=== PATIENT | female | born 1950 | race Caucasian/White ===

== ENCOUNTER 2024-12-02 10:15 | Outpatient (CLI) | payer MEDICARE ==
[2024-12-02 13:28] LABS: #Basophils 0.05 10x3/uL (0.0-0.2); #Eosinophils 0.07 10x3/uL (0.0-0.7); #Monocytes 0.67 10x3/uL (0.11-0.59); #Neutrophils 3.10 10x3/uL (1.40-6.50); %Basophils 0.8 % (0.0-1.0); %Eosinophils 1.2 % (0.0-10.0); %Lymphocytes 34.5 % (21.0-51.0); %Monocytes 11.3 % (0.0-10.0); %Neutrophils 52.0 % (42.0-75.0); Hematocrit 43.7 % (36.0-47.0); Hemoglobin 14.7 g/dL (12.0-16.0); Mean Corpuscular Hemoglobin 31.3 pg (27.0-31.0); Mean Corpuscular Volume 93.0 fL (78.0-98.0); Platelet Count 240 10x3/uL (130-400); Red Blood Cell (RBC) Count 4.70 mill/uL (4.20-5.40); White Blood Cell (WBC) Count 5.95 10x3/uL (4.8-10.8)
[2024-12-02 13:45] LABS: Anion Gap 15 mmol/L (10-20); BUN (Urea Nitrogen) 15 mg/dL (9.8-20.1); Calc. Creatinine Clearance 0 mL/min (70-130); Calcium 9.3 mg/dL (7.8-10.44); Carbon Dioxide 24 mmol/L (23-31); Chloride 104 mmol/L (98-107); Glucose 80 mg/dL (83-110); INR-International Normal Ratio 1.1; Potassium 4.1 mmol/L (3.5-5.1); Prothrombin Time 14.1 sec (12.0-14.7); Sodium 139 mmol/L (136-145)
[2024-12-02 15:11] LABS: Bacteria/HPF None Seen HPF (None Seen); Glucose, Urine (Dipstick) Normal (Negative); Leukocyte Negative Leu/uL (Negative); Protein, Urine (Dipstick) Negative (Neg-Trace); RBC/HPF 0-3 HPF (0-3); Specific Gravity, Urine 1.012 (1.002-1.036); WBC/HPF 0-3 HPF (0-3)
== END 2024-12-02 10:16 | disposition home or self-care (01) ==
LOC: LABBT 10:15 → MERGE 14:01
PROVIDERS: ATTEND Orthopaedic Surgery
DX: Z01.818 Encounter for other preprocedural examination (principal); M17.11 Unilateral primary osteoarthritis, right knee
CPT/HCPCS: 71046; 80048; 81001; 85025; 85610; 87081; 93005; 93010

== ENCOUNTER 2024-12-09 05:33 | Inpatient (IN) | payer MEDICARE ==
[2024-12-02 10:23] VITALS: BMI 29.2
[2024-12-09] MEDS ORDERED: Tranexamic Acid 1,000 MG/10 ML VIAL ONE ×2 (06:24→08:55)
[2024-12-09] MEDS ORDERED: Vancomycin 1 GM/200 ML (PREMIX FOIL) BAG ONE (06:25)
[2024-12-09] MEDS ORDERED: Ropivacaine 0.5% HCl/PF (150 MG/30 ML VIAL) ONE (06:34)
[2024-12-09] MEDS ORDERED: PROPOFOL 20 ML ONE (07:05)
[2024-12-09] MEDS ORDERED: Ondansetron PF 4 MG/2 ML Vial ONE ×2 (07:07→10:05)
[2024-12-09] MEDS ORDERED: Lidocaine 1% PF 5 ML VIAL ONE (07:07)
[2024-12-09] MEDS ORDERED: CEFAZOLIN 2 GM VIAL ONE (07:09)
[2024-12-09] MEDS ORDERED: MINERAL OIL/WHITE PETROLATUM 3.5 GM TUBE ONE (07:22)
[2024-12-09] MEDS ORDERED: Ropivacaine 0.2% 550 ML 550 ML NERVE BLCK SCH (07:30)
[2024-12-09] MEDS ORDERED: Ondansetron PF 4 MG/2 ML Vial IVP PRN (07:30)
[2024-12-09] MEDS ORDERED: PHENYLEPHRINE-NS 100 MCG/ML 10 ML SYRINGE ONE (08:27)
[2024-12-09] MEDS ORDERED: Acetaminophen 325 MG TAB PO PRN (08:41)
[2024-12-09] MEDS ORDERED: HYDROmorphone 0.5 MG/0.5 ML SYRINGE ONE ×3 (08:55→10:04)
[2024-12-09] MEDS ORDERED: Ketorolac Tromethamine 30 MG (1 mL) VIAL ONE (08:55)
[2024-12-09] MEDS ORDERED: fentaNYL PF 100 MCG/2 ML SYRINGE ONE ×2 (09:22→10:03)
[2024-12-09] MEDS: Ketorolac Tromethamine 30 MG (1 mL) VIAL IVP SCH (10:07)
[2024-12-09] MEDS: Aspirin 81 mg Enteric Coated Tablet PO SCH (14:14)
[2024-12-09] MEDS: Pantoprazole 40 MG DR.TAB PO SCH (14:15)
[2024-12-09] MEDS: HYDROcodone/Acetaminophen 10/325 mg Tablet PO PRN (15:54)
[2024-12-09 16:34] VITALS: BMI 29.2
[2024-12-09] MEDS: Rosuvastatin 5 MG TAB PO SCH (20:30)
[2024-12-09] MEDS: Vancomycin 1 GM in Premix 1 BAG IVPB SCH (20:30)
[2024-12-10 05:27] LABS: Hematocrit 36.1 % (36.0-47.0); Hemoglobin 11.9 g/dL (12.0-16.0); Mean Corpuscular Hemoglobin 31.2 pg (27.0-31.0); Mean Corpuscular Volume 94.5 fL (78.0-98.0); Platelet Count 182 10x3/uL (130-400); Red Blood Cell (RBC) Count 3.82 mill/uL (4.20-5.40); White Blood Cell (WBC) Count 8.16 10x3/uL (4.8-10.8)
[2024-12-10] MEDS: HYDROcodone/Acetaminophen 10/325 mg Tablet PO PRN (08:56)
[2024-12-10] MEDS: Senokot S 8.6-50 MG TAB PO SCH (09:00)
[2024-12-10] MEDS: Ferrous Gluconate 324 MG TAB PO SCH (09:00)
[2024-12-10] MEDS: Multivitamin W/ Minerals 1 TAB PO SCH (09:00)
[2024-12-10] MEDS: Ondansetron PF 4 MG/2 ML Vial IVP PRN (09:01)
[2024-12-10] MEDS ORDERED: Artificial Tear Ophth Sol 15 ML BOT EA EYE PRN (12:58)
[2024-12-11 05:30] LABS: Hematocrit 35.1 % (36.0-47.0); Hemoglobin 11.5 g/dL (12.0-16.0); Mean Corpuscular Hemoglobin 31.7 pg (27.0-31.0); Mean Corpuscular Volume 96.7 fL (78.0-98.0); Platelet Count 180 10x3/uL (130-400); Red Blood Cell (RBC) Count 3.63 mill/uL (4.20-5.40); White Blood Cell (WBC) Count 7.92 10x3/uL (4.8-10.8)
[2024-12-12 05:20] LABS: Hematocrit 32.9 % (36.0-47.0); Hemoglobin 11.0 g/dL (12.0-16.0); Mean Corpuscular Hemoglobin 31.3 pg (27.0-31.0); Mean Corpuscular Volume 93.7 fL (78.0-98.0); Platelet Count 170 10x3/uL (130-400); Red Blood Cell (RBC) Count 3.51 mill/uL (4.20-5.40); White Blood Cell (WBC) Count 7.67 10x3/uL (4.8-10.8)
[2024-12-13 05:08] LABS: Hematocrit 33.6 % (36.0-47.0); Hemoglobin 11.0 g/dL (12.0-16.0); Mean Corpuscular Hemoglobin 30.6 pg (27.0-31.0); Mean Corpuscular Volume 93.3 fL (78.0-98.0); Platelet Count 203 10x3/uL (130-400); Red Blood Cell (RBC) Count 3.60 mill/uL (4.20-5.40); White Blood Cell (WBC) Count 6.28 10x3/uL (4.8-10.8)
[2024-12-13] MEDS: diphenhydrAMINE 25 MG CAP PO PRN (21:10)
[2024-12-14 06:17] LABS: Hematocrit 34.2 % (36.0-47.0); Hemoglobin 11.2 g/dL (12.0-16.0); Mean Corpuscular Hemoglobin 31.0 pg (27.0-31.0); Mean Corpuscular Volume 94.7 fL (78.0-98.0); Platelet Count 234 10x3/uL (130-400); Red Blood Cell (RBC) Count 3.61 mill/uL (4.20-5.40); White Blood Cell (WBC) Count 5.69 10x3/uL (4.8-10.8)
[2024-12-14] MEDS: Milk Of Magnesia 30 ML UDCUP PO SCH (10:15)
[2024-12-15 04:50] LABS: Hematocrit 34.5 % (36.0-47.0); Hemoglobin 11.4 g/dL (12.0-16.0); Mean Corpuscular Hemoglobin 30.8 pg (27.0-31.0); Mean Corpuscular Volume 93.2 fL (78.0-98.0); Platelet Count 250 10x3/uL (130-400); Red Blood Cell (RBC) Count 3.70 mill/uL (4.20-5.40); White Blood Cell (WBC) Count 5.30 10x3/uL (4.8-10.8)
[2024-12-17 04:31] VITALS: TEMP 97.8
[2024-12-17 08:34] VITALS: BP 112/68
== END 2024-12-17 10:00 | disposition home or self-care (01) | DRG 470 ==
LOC: SDC 05:33 → MERGE 10:00 → SURG B 12:00 → OBSVTOIN 12-10 10:39
PROVIDERS: ADMIT Orthopaedic Surgery; ATTEND Orthopaedic Surgery
PROC: 0SRC0JA Replacement of Right Knee Joint with Synthetic Substitute, Uncemented, Open Approach (ICD-10-PCS; principal; 2024-12-09)
PROC: 8E0Y0CZ Robotic Assisted Procedure of Lower Extremity, Open Approach (ICD-10-PCS; 2024-12-09)
PROC: 3E03329 Introduction of Other Anti-infective into Peripheral Vein, Percutaneous Approach (ICD-10-PCS; 2024-12-09)
PROC: 3E033XZ Introduction of Vasopressor into Peripheral Vein, Percutaneous Approach (ICD-10-PCS; 2024-12-09)
DX: M17.11 Unilateral primary osteoarthritis, right knee (principal); D62 Acute posthemorrhagic anemia; Z91.013 Allergy to seafood; Z98.890 Other specified postprocedural states; E78.00 Pure hypercholesterolemia, unspecified; Z82.49 Family history of ischemic heart disease and other diseases of the circulatory system; Z86.718 Personal history of other venous thrombosis and embolism; F17.210 Nicotine dependence, cigarettes, uncomplicated; Z79.899 Other long term (current) drug therapy
CPT/HCPCS: 36415; 85027; A4306; C1713; C1776; C1889; J0166; J0665; J1171; J1885; J2250; J2405; J2550; J2704; J2795; J3010; J3372; Q0162